=== PATIENT | male | born 1960 | race Caucasian/White ===

== ENCOUNTER 2022-11-13 08:16 | Outpatient (OUT) | payer OTHER, SELFPAY ==
[2022-11-13 08:37] LABS: Basophils Absolute Auto 0.1 10^3/uL (0.0-0.1); Basophils Percent Auto 0.9 % (0.2-2.0); Eosinophils Absolute Auto 0.2 10^3/uL (0.0-0.7); Eosinophils Percent Auto 3.2 % (0.9-7.0); Hematocrit 43.5 % (42.0-54.0); Hemoglobin 14.4 g/dL (14.0-18.0); Immature Granulocytes Abs Auto 0.01 10^3/uL (0.00-0.03); Immature Granulocytes Pct Auto 0.2 % (0.0-0.5); Lymphocytes Absolute Auto 1.7 10^3/uL (1.2-3.8); Lymphocytes Percent Auto 25.1 % (20.5-60.0); Mean Corpuscular HGB Conc 33.1 g/dL (29.9-35.2); Mean Corpuscular Hemoglobin 29.4 pg (25.9-34.0); Mean Platelet Volume 12.2 fL (9.5-13.5); Monocytes Absolute Auto 0.5 10^3/uL (0.3-0.8); Monocytes Percent Auto 7.4 % (1.7-12.0); Neutrophils Absolute Auto 4.2 10^3/uL (1.4-6.5); Neutrophils Percent Auto 63.2 % (43.0-75.0); Platelet Count 221 10^3/uL (150-450); Red Blood Count 4.89 10^6/uL (4.70-6.10); Red Cell Distribution Width 13.2 % (11.0-15.0); White Blood Count 6.6 10^3/uL (4.0-11.0)
[2022-11-13 08:54] LABS: Estimated Average Glucose 105 mg/dL; Glycohemoglobin A1C 5.3 % (4.5-6.2)
[2022-11-13 09:20] LABS: Alanine Aminotransferase 33 U/L (16-63); Albumin Globulin Ratio 1.3; Albumin Level 4.1 g/dL (3.4-5.0); Alkaline Phosphatase 98 U/L (46-116); Aspartate Amino Transferase 39 U/L (15-37); Bilirubin Direct 0.1 mg/dL (0.0-0.2); Bilirubin Total 0.6 mg/dL (0.2-1.0); Calcium 8.9 mg/dL (8.5-10.1); Carbon Dioxide 29.2 mmol/L (21.0-32.0); Chloride 104 mmol/L (98-107); Chol HDL Ratio 4.9; Cholesterol 188 mg/dL (<=200); Estimated GFR (African America >60 (>=60); Estimated GFR (Non-African Ame >60 (>=60); Globulin 3.2 g/dL; Glucose 87 mg/dL (74-106); HDL Cholesterol 38 mg/dL (40-60); Potassium 4.2 mmol/L (3.5-5.1); Sodium 138 mmol/L (136-145); Thyroid Stimulating Hormone 2.276 uIU/mL (0.358-3.740); Total Protein 7.3 g/dL (6.4-8.2); Triglycerides 125 mg/dL (<=150)
== END 2022-11-13 08:17 | disposition home or self-care (01) ==
PROVIDERS: PCP Family Medicine; Visit Provider Family Medicine
DX: Z00.00 Encounter for general adult medical examination without abnormal findings (principal)
CPT/HCPCS: 36415; 80048; 80061; 80076; 83036; 84443; 85025

== ENCOUNTER 2024-04-14 13:53 | Emergency (ER) | payer MEDICARE, SELFPAY ==
[2024-04-14 13:59] VITALS: BP 135/82; PULSE 77; TEMP 36.7; O2SAT 95; BMI 28.5
--- NOTE | 2024-04-14 14:08 | CT_ITS ---
[facility] [id number] Patient Name: JESSE LAWS MRN: [id number] date: 1960 Sex: M Assigned Patient Location: ER Current Patient Location: ER Accession/Order Number: [id number] Exam Date: 04/14/2024 14:15 Report Date: 04/14/2024 15:03 At the request of: PASQUALE IBARRA Procedure: CT cervical spine wo con EXAMINATION: CT cervical spine wo con HISTORY: Fall ; struck back of head on a brick COMPARISON: No relevant comparison available. TECHNIQUE: Axial, Coronal, and Sagittal images were created without IV contrast. Dose reduction techniques were achieved by using automated exposure control and/or adjustment of mA and/or kV according to patient size and/or use of iterative reconstruction technique. FINDINGS: VERTEBRAL BODIES: No fracture or spondylolisthesis. FACET JOINTS: Multilevel moderate degenerative facet arthropathy. No disruption or abnormal widening. DISCS: Marked narrowing C5-6 and C6-7 with posterior disc bulging and uncovertebral joint spurring resulting in foramen narrowing; moderate to marked on the right at C5-6 and on the left at C6-7. CENTRAL CANAL: No evidence of hemorrhage. PARASPINAL AREA: No visible mass. CT/CT cervical spine wo con IMPRESSION: 1. No appreciable acute abnormality. 2. Multilevel moderate to marked degenerative changes. Electronically authenticated by: SHEREE TREVINO Date: 04/14/2024 15:03
--- NOTE | 2024-04-14 14:08 | CT_ITS ---
[facility] [id number] Patient Name: JESSE LAWS MRN: [id number] date: 1960 Sex: M Assigned Patient Location: ER Current Patient Location: Accession/Order Number: [id number] Exam Date: 04/14/2024 14:15 Report Date: 04/14/2024 14:57 At the request of: PASQUALE IBARRA Procedure: CT head/brain wo con EXAMINATION: CT head/brain wo con HISTORY: Fall ; fell striking back of head; laceration on back of head COMPARISON: No relevant comparison available. TECHNIQUE: Axial CT images were obtained without IV contrast. Dose reduction techniques were achieved by using automated exposure control and/or adjustment of mA and/or kV according to patient size and/or use of iterative reconstruction technique. FINDINGS: BRAIN: No edema, hemorrhage, mass, acute infarction, or inappropriate atrophy. CSF SPACES: No hydrocephalus, subarachnoid hemorrhage, or mass. Appropriate for age. SKULL: No fracture, mass, or other significant visible lesion. SINUSES: Findings consistent with mild chronic sinusitis. No fluid levels or acute findings. ORBITS: No appreciable abnormality on the limited views. OTHER: Txkyg-ntkyqymf-afvhn subcutaneous hematoma over posterior right parietal bone. CT/CT head/brain wo con IMPRESSION: 1. No intercranial hemorrhage or acute abnormality of the brain. 2. Posterior right scalp hematoma. No fracture of the calvarium. No radiopaque foreign body within the scalp. Electronically authenticated by: SHEREE TREVINO Date: 04/14/2024 14:57
--- NOTE | 2024-04-14 14:09 | ED_ITS ---
HPI HPI - Head Injury General Chief complaint: Head Injury Stated complaint: FALL HEAD INJURY Time Seen by Provider: 04/14/24 14:06 Source: patient Mode of arrival: walk-in Limitations: no limitations History of Present Illness HPI Narrative: 63 year old male presents to the ED for a head injury s/p slip and fall today. He slipped on ice. He struck the back of his head on a brick. Denies LOC, vision changes, weakness, dizziness, N/V. Denies change in bowel and/or bladder control. Denies use of anticoagulant medication. Denies pain to his neck, back, extremities, chest, abdomen. States his tetanus status is up to date. Related Data Allergies Allergy/AdvReac Type Severity Reaction Status Date / Time Penicillins AdvReac Mild Hives Verified 04/14/24 13:59 Opioid HPI Opioid Management Most Recent Pain and Opioid Data: No Data to Display Review of Systems ROS Constitutional Denies: fever, chills or fatigue Ears, nose, mouth, and throat Denies: neck pain Cardiovascular Denies: chest pain Respiratory Denies: shortness of breath Gastrointestinal Denies: abdominal pain, nausea or vomiting Musculoskeletal Denies: back pain, neck pain, extremity pain or extremity swelling Integumentary/Breast Reports: other (Scalp laceration) Neurological Reports: headache; Denies: numbness in extremities, weakness in extremities, lack of coordination, dizziness, vertigo, confusion or slurred speech PFSH PFSH Social History Little interest or pleasure in doing things: not at all Feeling down, depressed, or hopeless: not at all Exam Constitutional Vital Signs, click to edit/add: Last Vital Signs Temp 98.1 F 04/14/24 13:59 Pulse 77 04/14/24 13:59 Resp 18 04/14/24 13:59 BP 135/82 04/14/24 13:59 Pulse Ox 95 04/14/24 13:59 O2 Del Method Room Air 04/14/24 13:59 Common normals: no apparent distress and oriented x3 General appearance: cooperative HENMT Head and scalp: no Romero's sign and no raccoon eyes External ear: external ears normal Mouth: oral and palatal mucosa normal, lip normal and tongue normal Throat: posterior oropharynx normal Other: 2 cm laceration with surrounding hematoma to occipital scalp. Minimal bleeding. Eye Common normals: PERRL, EOMs intact bilaterally, conjunctivae normal and no scleral icterus Neck & C-Spine Common normals: supple Cervical spine: no cervical spine tenderness, no paracervical muscle tenderness and no paracervical muscle spasm Chest Chest: symmetrical chest wall rise Back & Pelvis Thoracic spine/upper back: normal to inspection; no thoracic spinal tenderness, no paraspinal muscle tenderness and no paraspinal muscle spasm Lumbar spine/lower back: normal to inspection; no lumbar spinal tenderness, no paraspinal muscle tenderness and no paraspinal muscle spasm Neuro Common normals: oriented x3, CN's II-XII intact bilaterally, moves all extremities and no focal motor deficits Sensorium/orientation: awake and alert Speech: speech normal Gait (neuro): normal gait Course Vital Signs Vital signs: Vital Signs Temperature 98.1 F 04/14/24 13:59 Pulse Rate 77 04/14/24 13:59 Respiratory Rate 18 04/14/24 13:59 Blood Pressure 135/82 04/14/24 13:59 Pulse Oximetry 95 04/14/24 13:59 Oxygen Delivery Method Room Air 04/14/24 13:59 Temperature 98.1 F 04/14/24 13:59 Pulse Rate 77 04/14/24 13:59 Respiratory Rate 18 04/14/24 13:59 Blood Pressure 135/82 04/14/24 13:59 Pulse Oximetry 95 04/14/24 13:59 Oxygen Delivery Method Room Air 04/14/24 13:59 MDM - Head Injury MDM Narrative Medical decision making narrative: CT scan showed a posterior right scalp hematoma. His laceration was cleansed and michael were placed. He was advised to have the michael removed in 7-10 days. Follow up with pcp for a recheck, further evaluation and treatment. He was discharged to family. Differential Diagnosis Differential diagnosis: Likely closed head injury, subarachnoid hematoma, subdural hematoma and other (Cervical spine fracture, hematoma, scalp laceration) Medical Records Attestation: I reviewed the patient's medical records. Lab Data Attestation: I reviewed the patient's lab results. Imaging Data CT scan - head: Attestation: I have reviewed the pertinent imaging results. Radiologist's impression: ITS Impressions Cervical Spine CT 04/14/24 14:08 IMPRESSION: 1. No appreciable acute abnormality. 2. Multilevel moderate to marked degenerative changes. Electronically authenticated by: SHEREE Fry: 04/14/2024 15:[address] 04/14/24 14:08 IMPRESSION: 1. No intercranial hemorrhage or acute abnormality of the brain. 2. Posterior right scalp hematoma. No fracture of the calvarium. No radiopaque foreign body within the scalp. Electronically authenticated by: SHEREE TREVINO Date: 04/14/2024 14:57 Discharge Plan Discharge Chief Complaint: Head Injury Clinical Impression: Head injury, Laceration of scalp Patient Disposition: Home, Self-Care Time of Disposition Decision: 15:11 Condition: Good Mode of Transportation: Private Vehicle Print Language: [place] Instructions: Laceration (ED), Head Injury (ED) Additional Instructions: The michael will need to be removed in 7-10 days. Watch for signs of infection: redness, purulent drainage, swelling. Referrals: Brien Max MD [Primary Care Provider] - 1 week Procedures ED Laceration Laceration Laceration 1: Site: scalp Size (cm): 2 Description: linear Depth: simple, single layer Skin layer closed with: other (Michael) Additional comments: The wound was cleansed with sterile saline. LET was apply to anesthetize the area. Four michael were inserted. He tolerated the procedure well.
[2024-04-14] MEDS: LIDOCAINE/EPINEPHRINE/TETRACAINE 3 ML GEL.PF.APP 1.5 ML TOPICAL (14:27)
== END 2024-04-14 15:28 | disposition home or self-care (01) ==
PROVIDERS: Emergency Provider Emergency Medicine; PCP Family Medicine
DX: S01.01XA Laceration without foreign body of scalp, initial encounter (principal); W18.39XA Other fall on same level, initial encounter; S09.90XA Unspecified injury of head, initial encounter
CPT/HCPCS: 12001; 70450; 72125; 99284